=== PATIENT | female | born 1960 | race Caucasian/White ===

== ENCOUNTER → 2016-11-22 | Outpatient (CLI) | payer BC ==
[~2016-11-22] MED LIST: ACTOS 45 MG45 M1 PO; AMARYL2 MG PO; LIPITOR40 MG PO; MICARDIS HCT 81 EAC1 PO; NAPROSYN500 MG PO; NORCO 5-325 TA1 EACH PO; SYNTHROID50 MCG PO
[2016-11-22 10:00] LABS: CREATININE 0.7 mg/dL (0.6-1.3)
== END ==
LOC: CAT 09:15
PROVIDERS: Family Medicine
DX: K57.30 Diverticulosis of large intestine without perforation or abscess without bleeding (principal); R16.1 Splenomegaly, not elsewhere classified; R10.32 Left lower quadrant pain

== ENCOUNTER 2017-02-23 05:16 | Observation (INO) | payer BC ==
[~2017-02-23] VITALS: Ht 167.6 cm; Wt 132.0 kg
--- NOTE | ~2017-02-23 | EXE ---
[facility] [place] [place] [address] STRESS ECHOCARDIOGRAM Name: CHADMAT Room #: 450-P [facility] IN M.R.#: [id number] Admission: 02/23/17 Attend Phys: Sumanth Belcher, Discharge: Date of : 56 Date of Service: 02/23/17 1241 Report #: [id number] THIS REPORT FOR: //name// APPROVED REPORT Exam: Stress Echocardiogram Indication: Chest pain Patient Location: Echo lab Stress Nurse: Maday Woody Room #: 450 Status: routine HR: 78 bpm Medical History Medical History: Diabetes, HTN, Hyperlipidemia Cardiac Risk Factors: HTN, Hyperlipidemia, DM, Tobacco History (Former) Exercise History: Sedentary Procedure The patient underwent an Exercise Stress Test using the Modified Luis Protocol. Blood pressure, heart rate, and EKG were monitored. An Echocardiogram was performed by alarm installation technician in four stages in quad fashion. At peak stress, four selected images were obtained and placed side by side with resting images for comparison. Stress Test Details Stress Test: Exercise stress testing was performed using a modified Luis protocol. HR Resting HR: 78 bpm Max Heart Rate (APMHR): 162 bpm Max HR Achieved: 150 bpm Target HR (85% APMHR): 137 bpm % of APMHR: 92 Recovery HR: 96 bpm HR response to stress: Normal HR response to stress BP Resting BP: 148/80 mmHg Max BP: 180/70 mmHg Recovery BP: 160/60 mmHg ECG Resting ECG: Sinus Rhythm [facility] [address] [place] [address] STRESS ECHOCARDIOGRAM Name: MAT BONILLA Room #: 450-P [facility] IN ..#: [id number] Admission: 02/23/17 Attend Phys: Sumanth Belcher, Discharge: Date of : 56 Date of Service: 02/23/17 1241 Report #: [id number] Stress ECG: Sinus Rhythm Recovery ECG: Sinus Rhythm Clinical Reason for Termination: Maximal effort Exercise duration: 4 min sec Highest Stage Achieved: Stage 2: 2.5 mph at 12% grade. Exercise capacity: 6.1 METs Overall Exercise Capacity for Age: Poor Stress ECG Conclusion 1. SUBJECTIVELY NEGATIVE FOR ISCHEMIA 2. ELECTROCARDIOGRAPHICALLY NEGATIVE FOR ISCHEMIA 3. DECREASED FUNCTIONAL CAPACITY Pre-Stress Echo The resting Echocardiogram showed normal left ventricular contractility with an estimated Ejection Fraction of about 55-60%. Post-Stress Echo The stress Echocardiogram showed normal left ventricular contractility with an estimated Ejection Fraction of about 60-65%. Clinical Normal augmentation of myocardial wall segments using a 17 segment model. Conclusion Clinical Response: Non-ischemic Exercise Capacity: Below Average Stress ECG Response: Non-ischemic Stress Echo Images: Non-ischemic 1. LOW RISK STUDY No prior study available for comparison. Other Information Study Quality: Adequate <Conclusion> 1. LOW RISK STUDY <ELECTRONICALLY SIGNED> By: Jerardo Vásquez MD 02/23/17 1241 1241 1241 Jerardo Vásquez MD /INF
--- NOTE | ~2017-02-23 | H ---
[facility] [place] [address] HISTORY AND PHYSICAL Name: MAT BONILLA Room #: 450-P [facility] Aretha Deras#: [id number] Admission: 02/23/17 Attend Phys: Sumanth Belcher MD Discharge: 02/23/17 Date of : 56 Report #: [id number] THIS REPORT FOR: //name// CC: Sumanth Belcher DATE OF SERVICE: 02/23/2017 CHIEF COMPLAINT: Chest pain. HISTORY OF PRESENT ILLNESS: The patient is a 56-year-old female who presented to the ER with chest pain that had been happening off and on for two weeks. She felt pressure in her mid and right side of her chest today. She says it is worse with activity. PAST MEDICAL HISTORY: Significant for arthritis, hyperlipidemia, diabetes mellitus, and hypertension. MEDICATIONS: Micardis HCT 80/25, Actos 45, glimepiride 2 mg b.i.d., atorvastatin 40 mg a day. ALLERGIES: MORPHINE. SOCIAL HISTORY: She is a prior smoker, no alcohol, no recreational drugs. Her heart score is a total of 4. REVIEW OF SYSTEMS: CONSTITUTIONAL: No fever or chills. HEENT: No headaches or visual changes. CHEST: Per above. No cough or sputum production. GASTROINTESTINAL: No nausea, vomiting, diarrhea or constipation. GENITOURINARY: No burning or frequency. EXTREMITIES: No new swelling or pain. SKIN: No new rashes or wounds. NEUROLOGIC: No new numbness or weakness. PHYSICAL EXAMINATION: VITAL SIGNS: Blood pressure , pulse 106, respiratory rate 18. She is afebrile. GENERAL: The patient is awake and alert, in no acute distress. HEENT: Her mucous membranes are moist. NECK: Supple, no adenopathy, thyromegaly or bruits. LUNGS: Chest nontender to palpation. Clear to auscultation. CARDIOVASCULAR: Regular without murmur. ABDOMEN: Obese, soft, no masses. Bowel sounds are active. EXTREMITIES: Show no edema. Pulses are intact. NEUROLOGIC: Intact. No numbness or weakness. [facility] [address] [address] HISTORY AND PHYSICAL Name: CAHDMAT Room #: 450-[facility]#: [id number] Admission: 02/23/17 Attend Phys: Sumanth Belcher MD Discharge: 02/23/17 Date of : 56 Report #: [id number] LABORATORY DATA: EKG, normal sinus rhythm, rate of 96, no ST segment changes. Sodium 138, potassium 4.0, chloride 102, bicarb 27, BUN 17, creatinine 0.7, glucose 186, troponin less than 0.04, WBC 7.1, hemoglobin 12.9, hematocrit 38.3, platelet count 192, segs 64, and lymphs 25. Chest x-ray shows cardiomegaly, otherwise unremarkable. ASSESSMENT AND PLAN: Chest pain in a patient with risk factors for coronary artery disease. We will go ahead and admit her and get a stress echo this morning and reassess after the stress echo. <ELECTRONICALLY SIGNED> By: Sumanth Belcher MD 02/24/17 0827 0747 0944 Sumanth Belcher MD /nt
--- NOTE | ~2017-02-23 | EKG ---
[address] [address] ELECTROCARDIOGRAM REPORT Name: MAT BONILLA Room #: 450-P [facility]#: [id number] Admission: 02/23/17 Attend Phys: Sumanth Belcher MD Discharge: 02/23/17 Date of : 56 Report #: [id number] THIS REPORT FOR: //name// [facility] ED Test Date: 2017-02-23 Test Time: 05:26:56 Pat Name: MAT BONILLA Department: Room: [facility] Gender: F Web Marketing Assistant: ZULMA : 1960 Requested By: Nava Diaz Order Number: [id number] MD: Pablo Pizarro Measurements Intervals [place] Rate: 96 P: 53 ID: 133 QRS: 32 QRSD: 91 T: 9 QT: 348 QTc: 440 Interpretive Statements Sinus rhythm No previous ECG available for comparison Electronically Signed On 02-24-2017 16:05:17 CDT by Pablo Pizarro [email or web address] <ELECTRONICALLY SIGNED> By: Pablo Pizarro MD 02/24/17 1605 0526 05 Pablo Pizarro MD /JOE
[2017-02-23 05:20] VITALS: BP 165/60
[2017-02-23 06:06] LABS: ABSOLUTE NEUTROPHILS 4.6 thou/uL (1.4-8.2); BASOPHILS 0.5 % (0.0-2.0); EOSINOPHILS 2.8 % (0.0-3.0); HEMATOCRIT 38.3 % (37.0-47.0); HEMOGLOBIN 12.9 gm/dL (12.0-15.0); LYMPHOCYTES 25.8 % (24.0-44.0); MCH 26.3 pg (26.0-34.0); MCHC 33.7 g/dL (28.0-37.0); MCV 77.9 fL (80.0-100.0); MONOCYTES 6.6 % (1.0-8.0); PLATELET COUNT 192 thou/uL (150-400); POLYS 64.3 % (36.0-66.0); RBC 4.92 mil/uL (4.20-5.00); WBC 7.1 thou/uL (4.0-11.0)
[2017-02-23 06:07] LABS: ANION GAP 9 mmol/L (7-16); BUN 17 mg/dL (7-18); CALCIUM 9.9 mg/dL (8.5-10.1); CHLORIDE 102 mmol/L (98-107); CO2 27 mmol/L (21-32); CREATININE 0.7 mg/dL (0.6-1.0); GLUCOSE 186 mg/dL (74-106); SODIUM 138 mmol/L (136-145)
[2017-02-23 06:08] LABS: MANUAL DIFF NO
[2017-02-23 06:15] LABS: TROPONIN-I < 0.04 ng/mL (<0.04-0.07)
[2017-02-23 07:08] VITALS: BP 127/41
[2017-02-23 07:27] VITALS: BP 112/57
[2017-02-23 15:17] VITALS: BP 112/57
== END 2017-02-23 16:00 | disposition home or self-care (01) ==
LOC: ER 05:16 → EROBS 06:47 → 4W 07:09
PROVIDERS: Emergency Medicine
DX: R07.89 Other chest pain (principal); E78.5 Hyperlipidemia, unspecified; E11.9 Type 2 diabetes mellitus without complications; I10 Essential (primary) hypertension; E66.9 Obesity, unspecified; Z87.891 Personal history of nicotine dependence

== ENCOUNTER 2017-10-09 10:31 | Emergency (ER) | payer BC ==
[~2017-10-09] VITALS: Ht 170.2 cm; Wt 131.5 kg
[2017-10-09 10:32] VITALS: BP 156/47
[2017-10-09] MEDS ORDERED: OXYCODONE HCL 55 MG PO (11:35)
== END 2017-10-09 11:42 | disposition home or self-care (01) ==
LOC: ER 10:31
DX: M25.521 Pain in right elbow (principal); I10 Essential (primary) hypertension; E11.9 Type 2 diabetes mellitus without complications; E78.00 Pure hypercholesterolemia, unspecified; Z90.49 Acquired absence of other specified parts of digestive tract; Z90.710 Acquired absence of both cervix and uterus; Z88.6 Allergy status to analgesic agent; Z87.891 Personal history of nicotine dependence

== ENCOUNTER → 2018-01-21 | Outpatient (CLI) | payer BC ==
[~2018-01-21] MED LIST changes: +OXYCODONE HCL 55 MG PO
== END ==
LOC: RAD 01:11
DX: Z12.31 Encounter for screening mammogram for malignant neoplasm of breast (principal); M81.0 Age-related osteoporosis without current pathological fracture; M85.89 Other specified disorders of bone density and structure, multiple sites

== ENCOUNTER 2019-04-07 12:39 | Emergency (ER) | payer BC ==
[~2019-04-07] VITALS: Ht 165.1 cm; Wt 134.3 kg
[2019-04-07] MEDS ORDERED: ULTRAM 50MG TAB50 MG PO (13:34)
[2019-04-07 14:00] VITALS: BP 169/62
== END 2019-04-07 13:47 | disposition home or self-care (01) ==
LOC: ER 12:39
DX: S92.512A Displaced fracture of proximal phalanx of left lesser toe(s), initial encounter for closed fracture (principal); M25.572 Pain in left ankle and joints of left foot; I10 Essential (primary) hypertension; E11.9 Type 2 diabetes mellitus without complications; E78.5 Hyperlipidemia, unspecified; Z90.49 Acquired absence of other specified parts of digestive tract; Z90.710 Acquired absence of both cervix and uterus; Z90.11 Acquired absence of right breast and nipple; Z88.6 Allergy status to analgesic agent; Z87.891 Personal history of nicotine dependence; W18.49XA Other slipping, tripping and stumbling without falling, initial encounter; Y92.89 Other specified places as the place of occurrence of the external cause; Y93.89 Activity, other specified; Y99.8 Other external cause status

== ENCOUNTER 2019-10-17 14:04 | Inpatient (IN) | payer BC ==
[~2019-10-17] VITALS: Ht 152.4 cm; Wt 136.1 kg
[~2019-10-17 14:04] MED LIST changes: +ULTRAM 50MG TAB50 MG PO
[2019-10-17 14:14] VITALS: BP 156/41
[2019-10-17 15:07] LABS: ABSOLUTE NEUTROPHILS 4.7 thou/uL (1.4-8.2); BASOPHILS 0.9 % (0.0-2.0); EOSINOPHILS 1.6 % (0.0-3.0); HEMATOCRIT 35.8 % (37.0-47.0); HEMOGLOBIN 11.8 gm/dL (12.0-15.0); LYMPHOCYTES 26.5 % (24.0-44.0); MCH 25.4 pg (26.0-34.0); MCHC 32.9 g/dL (28.0-37.0); MCV 77.2 fL (80.0-100.0); MONOCYTES 7.7 % (1.0-8.0); PLATELET COUNT 230 thou/uL (150-400); POLYS 63.3 % (36.0-66.0); RBC 4.64 mil/uL (4.20-5.00); RDW 15.8 % (10.5-14.5); WBC 7.4 thou/uL (4.0-11.0)
[2019-10-17 15:19] LABS: ANION GAP 6 mmol/L (7-16); BUN 11 mg/dL (7-18); CALCIUM 8.8 mg/dL (8.5-10.1); CHLORIDE 101 mmol/L (98-107); CO2 32 mmol/L (21-32); CREATININE 0.7 mg/dL (0.6-1.0); GLUCOSE 123 mg/dL (74-106); POTASSIUM 3.3 mmol/L (3.5-5.1); SODIUM 139 mmol/L (136-145)
--- NOTE | 2019-10-17 15:27 | EKG ---
[facility] [place] [address] [address] ELECTROCARDIOGRAM REPORT Name: CHADMAT LEON Room #: [facility]#: [id number] Admission: 10/17/19 Attend Phys: Discharge: Date of : 56 Report #: [id number] THIS REPORT FOR: cc: Sumanth Belcher MD, Neal A. MD Couchonnal, Luis F. MD ~ THIS REPORT FOR: //name// [facility] ED Test Date: 2019-10-17 Test Time: 14:40:52 Pat Name: MAT BONILLA Department: Room: Gender: F Statue Carver: BRIE : 1960 Requested By: Maikel Dasilva Order Number: [id number] : Pablo Pizarro Measurements Intervals [place] Rate: 67 P: 62 ND: 151 QRS: 43 QRSD: 91 T: 41 QT: 415 QTc: 438 Interpretive Statements Sinus rhythm Abnormal inferior Q waves Borderline T wave abnormalities Compared to ECG 02/23/2017 05:26:56 Inferior Q waves now present Q waves now present T-wave abnormality now present Electronically Signed On 10-17-2019 15:26:31 ENTERPRISE APPLICATION ADMINISTRATOR by Pablo Pizarro [email or web address] <ELECTRONICALLY SIGNED> By: Pablo Pizarro MD 10/17/19 1526 1440 1440 Pablo Pizarro MD /EPI
[2019-10-17 15:29] LABS: TROPONIN-I <0.06 ng/mL (<0.06)
[2019-10-17 21:31] VITALS: BP 147/36
[2019-10-17 22:52] VITALS: BP 139/47
[2019-10-17] MEDS ORDERED: SYNTHROID25 MC1 PO (22:54)
[2019-10-17] MEDS ORDERED: ZOLOFT25 MG PO (22:55)
[2019-10-17] MEDS ORDERED: TAPAZOLE10 MG PO (22:56)
[2019-10-17] MEDS ORDERED: ALENDRONATE SOD35 MG PO (22:57)
[2019-10-17] MEDS ORDERED: AMARYL4 MG PO (22:57)
[2019-10-17 23:10] VITALS: BP 156/48
--- NOTE | 2019-10-18 00:43 | NUR ---
10/17/19 2310 PT TO ROOM AND VITAL SIGNS TAKEN, PT ORIENTED TO ROOM, 2330 ASSESSMENT COMPLETED SEE ADMISSION ASSESSMENT, PT ACCLIMATED TO ROOM, STAND BY ASSIST TO BATHROOM, WILL CONTINUE WITH HOURLY ROUNDING.DIONNE NOTIFIED OF SCHEDULED 2100 MEDS NOT GIVEN AND STATES OK TO START TOMORROW.
[2019-10-18 04:30] VITALS: BP 136/49
[2019-10-18 06:52] LABS: ABSOLUTE NEUTROPHILS 5.3 thou/uL (1.4-8.2); BASOPHILS 0.2 % (0.0-2.0); HEMATOCRIT 34.3 % (37.0-47.0); HEMOGLOBIN 11.4 gm/dL (12.0-15.0); LYMPHOCYTES 10.4 % (24.0-44.0); MCH 25.8 pg (26.0-34.0); MCHC 33.2 g/dL (28.0-37.0); MCV 77.6 fL (80.0-100.0); MONOCYTES 2.9 % (1.0-8.0); PLATELET COUNT 217 thou/uL (150-400); POLYS 86.5 % (36.0-66.0); RBC 4.42 mil/uL (4.20-5.00); RDW 15.5 % (10.5-14.5); WBC 6.1 thou/uL (4.0-11.0)
[2019-10-18 07:03] LABS: CALCIUM 8.8 mg/dL (8.5-10.1); CREATININE 0.8 mg/dL (0.6-1.0); MAGNESIUM 1.9 mg/dL (1.8-2.4); POTASSIUM 3.5 mmol/L (3.5-5.1)
[2019-10-18 12:02] VITALS: BP 164/68
[2019-10-18 15:43] LABS: % SATURATION 11 % (20-39); IRON 25 ug/dL (50-170); TIBC 238 ug/dL (250-450)
[2019-10-18 16:10] LABS: FOLIC ACID 17.5 ng/mL (8.6-58.9)
[2019-10-18 19:06] VITALS: BP 128/87
[2019-10-18 19:38] VITALS: BP 146/45
--- NOTE | 2019-10-18 20:47 | NUR ---
1900 ASSUMED CARE OF PT AFTER BEDSIDE REPORT. 2029 ASSESSMENT COMPLETED, PT IN BED BUT UP AD HUBER, LUNGS CLEARER THAN PREV SHIFT ALTHOUGH STILL DIMINISHED, GOOD COUGH EFFORT, PT STATES SHE IS BREATHING EASIER AND DOESN'T GET SHORT OF AIR WITH AMBULATION, WILL CONTINUE WITH HOURLY ROUNDING
[2019-10-19 04:03] VITALS: BP 138/49
[2019-10-19 06:44] VITALS: BP 147/55
[2019-10-19 08:23] VITALS: BP 129/64
--- NOTE | 2019-10-19 15:38 | NUR ---
PATIENT CONT TO HAVE HIGH BS THROUGH THE DAY. INSULIN SCALE ADJUSTED NEEDED. SHE IS ALERT ORIENTED X4. RESPIRATIOSN ARE NON LABORED. ENCOURAGED TO WALK ACROSS THE ROOM AND SHE DID. LUNGS SOUND MUCH BETTER TODAY. SHE HAS BEEN WEANED OFF OXYGEN AT THIS TIME. OXGYEN SATS REMAIN ABOVE 92% IN RA. WILL CONT WITH PLAN OF CARE.
[2019-10-19 16:59] VITALS: BP 107/89
[2019-10-19 20:35] VITALS: BP 136/58
--- NOTE | 2019-10-20 02:29 | NUR ---
ASSESSMENT COMPLETED AT THE START OF SHIFT.PT UP ADLIB IN HER ROOM.AXOX4.PT'S BG MONITORED ORDERED WAS ELEVATED,TREATED WITH INSULIN.PT ABLE TO MAKE HER NEEDS KNOWN.PT DENIED PAIN/SOB SO FAR.PT RESTING ON HER BED AT THIS TIME.CALL LIGHT WITHIN REACH.
[2019-10-20 04:30] VITALS: BP 140/44
[2019-10-20 08:51] VITALS: BP 96/77
[2019-10-20] MEDS ORDERED: LEVAQUIN 500 M500 M3 PO (09:05)
--- NOTE | 2019-10-20 10:12 | 2DMMODE ---
[facility] [place] [address] 2 D/M-MODE ECHOCARDIOGRAM Name: MAT BONILLA Room #: 442-P [facility] IN M.R.#: [id number] Admission: 10/17/19 Attend Phys: Vinicius Wolf MD Discharge: Date of : 56 Report #: [id number] THIS REPORT FOR: cc: Sumanth Belcher MD, Neal A. MD Lundgren,Young Blackwood MD [facility] ~ APPROVED REPORT Study performed: 10/20/2019 09:23:38 EXAM: Comprehensive 2D, Doppler, and color-flow Echocardiogram Patient Location: Echo lab Room #: 442 Status: routine BSA: 2.35 HR: 91 bpm BP: 96/77 mmHg Rhythm: NSR Other Information Study Quality: Adequate Technically limited study due to morbid obesity. Indications Short of breath. Hx: HTN, HLP, DM. 2D Dimensions RVDd: 39.75 mm IVSd: 9.82 (7-11mm) LVOT Diam: 21.18 (18-24mm) LVDd: 53.01 mm PWd: 10.70 (7-11mm) Ascending Ao: 34.09 (22-36mm) LVDs: 35.77 (25-40mm) Aortic Root: 26.61 mm Volumes Left Atrial Volume (Systole) Single Plane 4CH: 60.31 mL Single Plane 2CH: 56.48 mL LA ESV Index: 27.00 mL/m2 Aortic Valve AoV Peak Anuj.: 2.91 m/s AO Peak Gr.: 33.84 mmHg LVOT Max P.03 mmHg AO Mean Gr.: 21.35 mmHg AO V2 Mean: 2.22 m/s LVOT Max V: 1.42 m/s [facility] [place] [address] 2 D/M-MODE ECHOCARDIOGRAM Name: MAT BONILLA Room #: 442-P [facility] IN ..#: [id number] Admission: 10/17/19 Attend Phys: Vinicius Wolf, Discharge: Date of : 56 Report #: [id number] AO V2 VTI: 65.21 cm NELL Vmax: 1.72 cm2 Mitral Valve E/A Ratio: 0.9 MV Decel. Time: 200.62 ms MV E Max Anuj.: 1.32 m/s MV A Anuj.: 1.43 m/s MV PHT: 58.18 ms IVRT: 41.52 ms Pulmonary Valve PV Peak Anuj.: 1.20 m/s PV Peak Gr.: 5.74 mmHg Pulmonary Vein P Vein S: 1.03 m/s P Vein A: 0.37 m/s P Vein D: 0.86 m/s P Vein A Dur.: 100.3 msec P Vein S/D Ratio: 1.20 Tricuspid Valve TR Peak Anuj.: 2.19 m/s RAP Estimate: 5.00 mmHg TR Peak Gr.: 19.21 mmHg PA Pressure: 24.00 mmHg Left Ventricle The left ventricle is normal size. There is normal LV segmental wall motion. There is normal left ventricular wall thickness. Left ventricular systolic function is normal. LVEF is 60-65%. Mild diastolic dysfunction is present (impaired relaxation pattern). Right Ventricle The right ventricle is normal size. The right ventricular systolic function is normal. Atria The left atrium size is normal. The right atrium size is normal. Aortic Valve The aortic valve is mildly calcified, mildly stenotic. No aortic regurgitation is present. There is very mild valvular aortic stenosis. Calculated aortic valve area is 1.7 cm2 with maximum pressure gradient of 34 mmHg and mean pressure gradient of 21 mmHg. [facility] [address] [place] [address] 2 D/M-MODE ECHOCARDIOGRAM Name: CHADMAT Room #: 442-P [facility] IN [facility]#: [id number] Admission: 10/17/19 Attend Phys: Vinicius Wolf, Discharge: Date of : 56 Report #: [id number] Mitral Valve The mitral valve is normal in structure. Trace mitral regurgitation. Tricuspid Valve The tricuspid valve is normal in structure. Trace tricuspid regurgitation. Estimated PAP is 25mmHg. Pulmonic Valve Pulmonic valve is not well visualized. There is no pulmonic valvular regurgitation. Great Vessels The aortic root is normal in size. The ascending aorta is normal in size. IVC is normal in size and collapses >50% with inspiration. Pericardium There is no pericardial effusion. <Conclusion> Left ventricular systolic function is normal. There is normal LV segmental wall motion. LVEF is 60-65%. Mild diastolic dysfunction The aortic valve is mildly calcified, mildly stenotic. No aortic insufficiency Calculated aortic valve area is 1.7 cm2 with maximum pressure gradient of 34 mmHg and mean pressure gradient of 21 mmHg. The mitral valve is normal in structure. Trace mitral regurgitation. Trace tricuspid regurgitation. Estimated pulmonary artery pressure of 25mmHg. There is no pericardial effusion. <ELECTRONICALLY SIGNED> By: Young Cates MD, FACC 10/20/19 1011 1011 1011 Young Cates MD, FACC /INF
[2019-10-20] MEDS ORDERED: RAYOS5 MG PO (10:14)
[2019-10-20 11:27] VITALS: BP 96/77
--- NOTE | 2019-10-20 13:47 | NUR ---
PT ALERT AND ORIENTED TIMES FOUR, VSS. PT DENIES PAIN/SOA. PT TOLERATES MEDS AND MEALS. PT UP AB HUBER WITH STEADY GAIT. FAMILY AT BEDSIDE. PT PROGRESSING TOWRADS [POC GOALS.
--- NOTE | 2019-10-20 14:32 | NUR ---
PT ADMITTED RELATED TO SHORTNESS OF AIR. CM REVIEWED CHART AND SPOKE WITH CARE TEAM. CM MET WITH PT AT BEDSIDE THIS DAY. PT IS A&O X4. CM ROLE INTRODUCED. PT INDICATED SHE LIVES IN A HOUSE WITH HER SPOUSE WITH 4 STEPS TO ENTER AND 10 STEPS INSIDE. 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 PT INDICATED SHE PLANS TO RETURN HOME WITH NO NEEDS ONCE MEDICALLY STABLE. CARE TEAM INDICATED THAT PT IS MEDICALLY STABLE TO DC HOME THIS DAY WITH NO NEEDS. CASE CLOSED.
== END 2019-10-20 13:45 | disposition home or self-care (01) | DRG 193 ==
LOC: ER 14:04 → EROBS 17:12 → 4S 17:12 → ENTRNSPT 10-20 13:43 → 4S 10-20 13:45 → EDTRNSPTSTS 10-20 13:49
PROVIDERS: Emergency Medicine; Nurse Practitioner; ADMIT Internal Medicine
DX: J18.9 Pneumonia, unspecified organism (principal); J96.21 Acute and chronic respiratory failure with hypoxia; I50.30 Unspecified diastolic (congestive) heart failure; E11.9 Type 2 diabetes mellitus without complications; E78.00 Pure hypercholesterolemia, unspecified; E78.5 Hyperlipidemia, unspecified; E87.6 Hypokalemia; I11.0 Hypertensive heart disease with heart failure; Z90.710 Acquired absence of both cervix and uterus; Z79.899 Other long term (current) drug therapy; Z79.84 Long term (current) use of oral hypoglycemic drugs; Z88.6 Allergy status to analgesic agent; Z88.8 Allergy status to other drugs, medicaments and biological substances; Z87.891 Personal history of nicotine dependence
CPT/HCPCS: 10195

== ENCOUNTER → 2020-01-29 | Outpatient (CLI) | payer BC ==
[~2020-01-29] MED LIST changes: +ALENDRONATE SOD35 MG PO; +AMARYL4 MG PO; +LEVAQUIN 500 M500 M3 PO; +RAYOS5 MG PO; +SYNTHROID25 MC1 PO; +TAPAZOLE10 MG PO; +ZOLOFT25 MG PO
== END ==
LOC: CAT 01-26 11:57
DX: R91.8 Other nonspecific abnormal finding of lung field (principal); I70.0 Atherosclerosis of aorta; I25.10 Atherosclerotic heart disease of native coronary artery without angina pectoris; J98.4 Other disorders of lung

== ENCOUNTER → 2020-02-27 | Outpatient (CLI) | payer BC ==
[2020-02-27 13:42] LABS: CREATININE 0.7 mg/dL (0.6-1.0)
== END ==
LOC: CAT 12:48 → LABMALL 12:48
PROVIDERS: ATTEND Nurse Practitioner
DX: K57.32 Diverticulitis of large intestine without perforation or abscess without bleeding (principal); R16.0 Hepatomegaly, not elsewhere classified; R10.32 Left lower quadrant pain

== ENCOUNTER → 2020-06-24 | Outpatient (CLI) | payer BC | LOC: BC 09-22 14:26 → RAD 08:37 | PROVIDERS: ATTEND Family Medicine | DX: Z12.31 Encounter for screening mammogram for malignant neoplasm of breast (principal); N64.89 Other specified disorders of breast ==

== ENCOUNTER → 2020-12-27 | Outpatient (CLI) | payer BC, OTHER | LOC: CAT 10:42 | PROVIDERS: ATTEND Nurse Practitioner | DX: R10.9 Unspecified abdominal pain (principal) ==

== ENCOUNTER 2021-03-02 08:08 | Emergency (ER) | payer BC, OTHER ==
[~2021-03-02] VITALS: Ht 165.1 cm; Wt 131.1 kg
[2021-03-02] MEDS ORDERED: ZPAK PO (09:35)
[2021-03-02] MEDS ORDERED: GUAIFEN-CODEINE10 ML PO (09:35)
[2021-03-02] MEDS ORDERED: ZOFRAN ODT4 MG PO (09:35)
[2021-03-02 10:53] VITALS: BP 149/42
--- NOTE | 2021-03-02 14:44 | EKG ---
[place] [address] [facility] [place] [address] ELECTROCARDIOGRAM REPORT Name: CHADMAT PREET Room #: [facility]P [facility]#: [id number] Admission: 03/02/21 Attend Phys: Discharge: 03/02/21 Date of : 56 Report #: [id number] [facility] ED Test Date: 2021-03-02 Test Time: 09:48:35 Pat Name: MAT BONILLA Department: Room: Gender: F Hospitalist Nocturnist Physician: BETSY : 1960 Requested By: Nava Diaz Order Number: [id number] MD: Angel Vicente Measurements Intervals [place] Rate: 71 P: 64 NE: 146 QRS: 41 QRSD: 112 T: 30 QT: 392 QTc: 426 Interpretive Statements Sinus rhythm Borderline intraventricular conduction delay Compared to ECG 10/17/2019 14:40:52 Inferior Q waves no longer present Q waves no longer present T-wave abnormality no longer present Electronically Signed On 03-02-2021 14:44:07 CDT by Angel Vicente [email or web address] <ELECTRONICALLY SIGNED> By: Angel Vicente MD, [facility] 03/02/21 1444 7 Angel Vicente MD, [facility] /EPI
== END 2021-03-02 10:54 | disposition home or self-care (01) ==
LOC: ER 08:08
DX: J18.9 Pneumonia, unspecified organism (principal); Z20.822 Contact with and (suspected) exposure to COVID-19; I10 Essential (primary) hypertension; E11.9 Type 2 diabetes mellitus without complications; F17.210 Nicotine dependence, cigarettes, uncomplicated; E78.00 Pure hypercholesterolemia, unspecified; Z90.710 Acquired absence of both cervix and uterus; Z90.49 Acquired absence of other specified parts of digestive tract; Z88.5 Allergy status to narcotic agent

== ENCOUNTER → 2021-07-04 | Outpatient (CLI) | payer BC, OTHER ==
[~2021-07-04] MED LIST changes: +GUAIFEN-CODEINE10 ML PO; +ZOFRAN ODT4 MG PO; +ZPAK PO
== END ==
LOC: BC 10:37
PROVIDERS: ATTEND Family Medicine
DX: Z12.31 Encounter for screening mammogram for malignant neoplasm of breast (principal)